=== PATIENT | female | born 2000 | race Two or more races ===

== ENCOUNTER 2024-06-17 19:38 | Inpatient (IN) | payer OTHER ==
[~2024-06-17] VITALS: Ht 162.6 cm; Wt 47.2 kg
[~2024-06-17 19:38] MED LIST: NA
[2024-06-17] MEDS ORDERED: ONDANSETRON HCL 2 MG/ML VIAL ONE (20:10)
[2024-06-17] MEDS ORDERED: KETOROLAC TROMETHAMINE 30 MG VIAL ONE (20:10)
[2024-06-17] MEDS ORDERED: FAMOTIDINE/PF 20 MG/2 ML VIAL ONE (20:11)
[2024-06-17] MEDS ORDERED: ONDANSETRON HCL 2 MG/ML VIAL IV ONE (20:15)
[2024-06-17] MEDS ORDERED: FAMOtidine 10 MG/ML (4ML VIAL) IV ONE (20:15)
[2024-06-17] MEDS ORDERED: KETOROLAC TROMETHAMINE 30 MG VIAL IU ONE (20:15)
[2024-06-17 21:23] LABS: HEMATOCRIT 35.7 % (36.0-45.00); MEAN CELL VOLUME 86.5 fL (80.00-100.00); MEAN CORPUSCULAR HEMOGLOBIN 29.2 pg (27.00-32.0); MEAN CORPUSCULAR HGB CONC 33.8 g/dl (32.0-36.0); PLATELET COUNT 307 K/uL (150-450); RED BLOOD COUNT 4.12 M/uL (4.00-6.00); RED CELL DISTRIBUTION WIDTH 13.7 % (11.5-14.5)
[2024-06-17 21:44] LABS: INR 1.07; PARTIAL THROMBOPLASTIN TIME 22.8 SECONDS (22.0-34.0); PROTHROMBIN TIME 11.6 SECONDS (9.0-11.5)
[2024-06-17 21:50] LABS: ALBUMIN 3.5 gm/dL (3.4-5.0); ALKALINE PHOSPHATASE 51 U/L (50-136); ALT/SGPT 16 U/L (12-78); ANION GAP 10 (10.0-20.0); AST/SGOT 10 U/L (15-37); BILIRUBIN TOTAL 0.99 mg/dL (0.3-1.2); BLOOD UREA NITROGEN 16 mg/dL (7-18); BUN CREA RATIO 22 (7.0-25.0); CALCIUM 9.2 mg/dL (8.5-10.1); CARBON DIOXIDE 26 mEq/L (21-32); CHLORIDE 111 mmol/L (98-107); CREATININE SERUM 0.74 mg/dL (0.55-1.02); GFR 96.42; GLOBULINA 2.7 G/DL (2.4-3.5); GLUCOSE FASTING 161 mg/dL (65-100); OSMOLALITY SERUM 290 MOSM/KG (275-295); POTASSIUM 4.41 mEq/L (3.5-5.1); SODIUM 143 mmol/L (136-145); TOTAL PROTEIN 6.2 gm/dL (6.4-8.2)
[2024-06-17 21:54] LABS: HCG QUANTITATIVE < 1 mUI/mL (1-3)
[2024-06-17] MEDS ORDERED: PIPERACILLIN/TAZOBACTAM SODIUM 3.375 GM VIAL IV ONE ×3 (21:54→22:00)
[2024-06-17] MEDS ORDERED: 0.9 % SODIUM CHLORIDE 1,000 ML IV ONE (22:00)
[2024-06-17] MEDS ORDERED: MORPHINE SULFATE 2 MG/ML SYRINGE IV ONE (23:15)
[2024-06-18] MEDS ORDERED: NOREPINEPHRINE BITARTRATE 1 MG/ML AMPUL IV ONE (00:23)
[2024-06-18 00:24] LABS: HEMATOCRIT 26.7 % (36.0-45.00); HEMOGLOBIN 9.1 g/dL (12.0-15.00); MEAN CELL VOLUME 85.2 fL (80.00-100.00); PLATELET COUNT 233 K/uL (150-450); RED BLOOD COUNT 3.13 M/uL (4.00-6.00); RED CELL DISTRIBUTION WIDTH 13.9 % (11.5-14.5)
[2024-06-18] MEDS ORDERED: NOREPINEPHRINE BITARTRATE 1 MG/ML AMPUL IV STA (00:24)
[2024-06-18] MEDS ORDERED: ONDANSETRON HCL 2 MG/ML VIAL IV SCH (03:11)
[2024-06-18] MEDS ORDERED: MORPHINE SULFATE 4 MG/ML VIAL IV PRN (03:15)
[2024-06-18] MEDS ORDERED: RINGERS SOLUTION,LACTATED 1,000 ML IV SCH ×2 (03:15→16:00)
[2024-06-18] MEDS ORDERED: MIDAZOLAM HCL 50 MG in 0.9 % SODIUM CHLORIDE 50 ML IV SCH (04:15)
[2024-06-18 04:33] LABS: HEMATOCRIT 37.7 % (36.0-45.00); HEMOGLOBIN 12.4 g/dL (12.0-15.00); MEAN CELL VOLUME 86.8 fL (80.00-100.00); MEAN CORPUSCULAR HEMOGLOBIN 28.7 pg (27.00-32.0); PLATELET COUNT 222 K/uL (150-450); RED BLOOD COUNT 4.34 M/uL (4.00-6.00); RED CELL DISTRIBUTION WIDTH 14.1 % (11.5-14.5)
[2024-06-18] MEDS ORDERED: MORPHINE SULFATE 4 MG/ML VIAL IV ONE (05:15)
[2024-06-18 07:07] LABS: ABG PH 7.381 (7.35-7.45); BASE EXCESS -5.8 mmol/l; SaO2 99.6 %; Tco2 18.9 mmol/l
[2024-06-18 07:18] LABS: o2 100 %; puncture site RADIAL LEFT
[2024-06-18 07:19] LABS: allen test SATISFACTORY
[2024-06-18 08:48] LABS: HEMATOCRIT 34.3 % (36.0-45.00); HEMOGLOBIN 12.2 g/dL (12.0-15.00); MEAN CELL VOLUME 84.8 fL (80.00-100.00); MEAN CORPUSCULAR HEMOGLOBIN 30.3 pg (27.00-32.0); MEAN CORPUSCULAR HGB CONC 35.7 g/dl (32.0-36.0); PLATELET COUNT 218 K/uL (150-450); RED BLOOD COUNT 4.04 M/uL (4.00-6.00)
[2024-06-18 09:05] LABS: ABG PH 7.366 (7.35-7.45); ABG PO2 159.9 mmHg (80-100); ABG pCO2 31.7 mmHg (35-45); BASE EXCESS -6.3 mmol/l; BICARBONATE 17.7 mmol/l (23-25); SaO2 99.3 %; Tco2 18.7 mmol/l
[2024-06-18] MEDS ORDERED: FUROsemide 20 MG/2 ML VIAL IV ONE (09:45)
[2024-06-18] MEDS ORDERED: FUROsemide 20 MG/2 ML VIAL ONE (09:53)
[2024-06-18 10:46] LABS: ABG PH 7.384 (7.35-7.45); ABG PO2 136.8 mmHg (80-100); BASE EXCESS -9.4 mmol/l; BICARBONATE 13.4 mmol/l (23-25); SaO2 98.9 %; Tco2 14.1 mmol/l
[2024-06-18] MEDS ORDERED: MEROPENEM 500 MG/VIAL VIAL IV SCH (12:00)
[2024-06-18] MEDS ORDERED: LINEZOLID IN DEXTROSE 5% 300 ML IV SCH (12:34)
[2024-06-18 12:40] LABS: ABG PH 7.397 (7.35-7.45); ABG PO2 227.9 mmHg (80-100); ABG pCO2 34.4 mmHg (35-45); BASE EXCESS -3.3 mmol/l; BICARBONATE 20.7 mmol/l (23-25); SaO2 99.8 %; Tco2 21.7 mmol/l
[2024-06-18 13:16] LABS: o2 65 %
[2024-06-18 13:17] LABS: allen test SATISFACTORY; puncture site RADIAL LEFT
[2024-06-18 13:19] LABS: allen test SATISFACTORY; o2 65 %; puncture site RADIAL LEFT
[2024-06-18 13:20] LABS: allen test SATISFACTORY; o2 100 %; puncture site RADIAL LEFT
[2024-06-18 14:04] LABS: ALBUMIN 2.4 gm/dL (3.4-5.0); BILIRUBIN TOTAL 1.26 mg/dL (0.3-1.2); CALCIUM 6.8 mg/dL (8.5-10.1); CREATININE SERUM 0.74 mg/dL (0.55-1.02); GFR 96.42; GLOBULINA 1.9 G/DL (2.4-3.5); POTASSIUM 3.61 mEq/L (3.5-5.1); TOTAL PROTEIN 4.3 gm/dL (6.4-8.2)
[2024-06-18 14:40] VITALS: BP 89/69; O2SAT 96
[2024-06-18 14:43] LABS: HEMATOCRIT 35.9 % (36.0-45.00); HEMOGLOBIN 12.1 g/dL (12.0-15.00); MEAN CELL VOLUME 85.8 fL (80.00-100.00); MEAN CORPUSCULAR HEMOGLOBIN 28.9 pg (27.00-32.0); MEAN CORPUSCULAR HGB CONC 33.7 g/dl (32.0-36.0); PLATELET COUNT 213 K/uL (150-450); RED BLOOD COUNT 4.19 M/uL (4.00-6.00); RED CELL DISTRIBUTION WIDTH 14.1 % (11.5-14.5)
[2024-06-18 15:38] LABS: URINE APPEARANCE Clear; URINE BILIRRUBIN Negative (NEGATIVE); URINE BLOOD Large; URINE COLOR Yellow; URINE KETONE 15 (NEGATIVE); URINE LEUKOCYTE Negative; URINE NITRATE Negative; URINE PROTEIN Negative (NEGATIVE); URINE UROBILINOGEN 0.2 E.U./dl
[2024-06-18 15:39] LABS: URINE RBC 27.5 uL (0.0-20.8); URINE WBC 4.1 uL (0.0-23.2)
[2024-06-18 15:45] VITALS: BP 91/66; O2SAT 98
[2024-06-18 15:46] LABS: URINE BACTERIA 3.6 uL (0.0-1933); URINE CAST 0.88 uL (0.0-1.40); URINE EPITHELIAL CELLS 0.4 uL (0.0-38.8); URINE GLUCOSE 100 MG/DL (NEGATIVE)
[2024-06-18] MEDS ORDERED: FAMOTIDINE/PF 20 MG/2 ML VIAL IV SCH (17:00)
[2024-06-18] MEDS ORDERED: ONDANSETRON HCL 4 MG in 0.9 % SODIUM CHLORIDE 50 ML IV PRN (19:15)
[2024-06-18 20:00] VITALS: BP 80/61; BP 90/61; O2SAT 100
[2024-06-18] MEDS ORDERED: 0.9 % SODIUM CHLORIDE 250 ML IV SCH (21:00)
[2024-06-18] MEDS ORDERED: 0.9 % SODIUM CHLORIDE 1,000 ML IV SCH (21:00)
[2024-06-18 23:08] VITALS: BP 80/61; O2SAT 100
[2024-06-19] VITALS (17 sets, daily range): BP systolic 75–116; BP diastolic 42–76; O2SAT 100
[2024-06-19 07:20] LABS: ALBUMIN 1.8 gm/dL (3.4-5.0); BILIRUBIN TOTAL 0.73 mg/dL (0.3-1.2); CALCIUM 6.6 mg/dL (8.5-10.1); CREATININE SERUM 0.5 mg/dL (0.55-1.02); GFR 151.58; GLOBULINA 1.5 G/DL (2.4-3.5); POTASSIUM 3.45 mEq/L (3.5-5.1); TOTAL PROTEIN 3.3 gm/dL (6.4-8.2)
[2024-06-19 07:34] LABS: MEAN CELL VOLUME 84.8 fL (80.00-100.00); MEAN CORPUSCULAR HGB CONC 34.4 g/dl (32.0-36.0); PLATELET COUNT 159 K/uL (150-450); RED BLOOD COUNT 2.28 M/uL (4.00-6.00)
[2024-06-19 07:40] LABS: HEMATOCRIT 19.3 % (36.0-45.00); MEAN CORPUSCULAR HEMOGLOBIN 28.9 pg (27.00-32.0)
[2024-06-19 07:41] LABS: HEMOGLOBIN 6.6 g/dL (12.0-15.00)
[2024-06-19] MEDS ORDERED: NOREPINEPHRINE BITARTRATE 4 MG in DEXTROSE 5 % IN WATER 250 ML IV SCH (08:15)
[2024-06-19] MEDS ORDERED: CALCIUM GLUCONATE 100 MG/ML VIAL IV STA (08:30)
[2024-06-19] MEDS ORDERED: AMINOCAPROIC ACID 250 MG/ML VIAL IV STA (08:31)
[2024-06-19] MEDS ORDERED: DOPamine 800 MG/250 ML D5W PB IV ONE (11:47)
[2024-06-19] MEDS ORDERED: DOPamine HCL IN DEXTROSE 5 % 250 ML IV SCH ×2 (12:00)
[2024-06-19 13:16] LABS: HEMATOCRIT 29.3 % (36.0-45.00); HEMOGLOBIN 10.1 g/dL (12.0-15.00); MEAN CELL VOLUME 83.4 fL (80.00-100.00); MEAN CORPUSCULAR HEMOGLOBIN 28.7 pg (27.00-32.0); MEAN CORPUSCULAR HGB CONC 34.4 g/dl (32.0-36.0); PLATELET COUNT 180 K/uL (150-450); RED BLOOD COUNT 3.51 M/uL (4.00-6.00); RED CELL DISTRIBUTION WIDTH 14.5 % (11.5-14.5)
[2024-06-19] MEDS ORDERED: FAMOTIDINE/PF 20 MG/2 ML VIAL ONE (14:27)
[2024-06-19] MEDS ORDERED: METRONIDAZOLE/SODIUM CHLORIDE 500 MG/100 ML PIGGYBACK IV STA (14:40)
[2024-06-19] MEDS ORDERED: FAMOTIDINE/PF 20 MG/2 ML VIAL IV PUSH STA (15:00)
[2024-06-19 15:49] LABS: HEMATOCRIT 28.8 % (36.0-45.00); HEMOGLOBIN 9.8 g/dL (12.0-15.00); MEAN CELL VOLUME 84.6 fL (80.00-100.00); MEAN CORPUSCULAR HEMOGLOBIN 28.7 pg (27.00-32.0); PLATELET COUNT 162 K/uL (150-450); RED CELL DISTRIBUTION WIDTH 14.3 % (11.5-14.5)
[2024-06-19] MEDS ORDERED: DOXYCYCLINE HYCLATE 100MG IV ONE (15:49)
[2024-06-19 16:16] LABS: TSH 2.57 uIU/mL (0.358-3.74)
[2024-06-19 16:20] LABS: T4 FREE 1.89 NG/ML (0.76-1.46)
[2024-06-19] MEDS ORDERED: DOXYCYCLINE HYCLATE 100MG IV NR (17:00)
[2024-06-19 18:34] LABS: HEMATOCRIT 24.3 % (36.0-45.00); MEAN CELL VOLUME 82.9 fL (80.00-100.00); MEAN CORPUSCULAR HGB CONC 34.7 g/dl (32.0-36.0); PLATELET COUNT 136 K/uL (150-450); RED BLOOD COUNT 2.93 M/uL (4.00-6.00); RED CELL DISTRIBUTION WIDTH 14.5 % (11.5-14.5)
[2024-06-19 18:44] LABS: HEMOGLOBIN 8.4 g/dL (12.0-15.00); MEAN CORPUSCULAR HEMOGLOBIN 28.6 pg (27.00-32.0)
[2024-06-19] MEDS ORDERED: METRONIDAZOLE/SODIUM CHLORIDE 500 MG/100 ML PIGGYBACK IV SCH (21:00)
[2024-06-20] VITALS (12 sets, daily range): BP systolic 93–106; BP diastolic 63–83; O2SAT 94–100
[2024-06-20] MEDS ORDERED: DOXYCYCLINE HYCLATE 100MG IV ONE ×2 (03:46→16:36)
[2024-06-20] MEDS ORDERED: DOXYCYCLINE HYCLATE 100MG IV SCH (05:00)
[2024-06-20] MEDS ORDERED: MORPHINE SULFATE 4 MG/ML CARTRIDGE IV PRN (06:15)
[2024-06-20] MEDS ORDERED: SIMETHICONE 125 MG CAPSULE PO SCH (13:00)
[2024-06-20 14:22] LABS: HEMATOCRIT 29.9 % (36.0-45.00); MEAN CORPUSCULAR HGB CONC 34.6 g/dl (32.0-36.0); RED CELL DISTRIBUTION WIDTH 14.1 % (11.5-14.5)
[2024-06-20 14:23] LABS: PLATELET COUNT 120 K/uL (150-450)
[2024-06-20 14:24] LABS: HEMOGLOBIN 10.3 g/dL (12.0-15.00); MEAN CORPUSCULAR HEMOGLOBIN 28.6 pg (27.00-32.0)
[2024-06-20 15:03] LABS: INR 1.02; PARTIAL THROMBOPLASTIN TIME 27.2 SECONDS (22.0-34.0); PROTHROMBIN TIME 11.1 SECONDS (9.0-11.5)
[2024-06-20 20:36] LABS: HEMATOCRIT 30.3 % (36.0-45.00); HEMOGLOBIN 10.4 g/dL (12.0-15.00); MEAN CELL VOLUME 83.8 fL (80.00-100.00); MEAN CORPUSCULAR HEMOGLOBIN 28.9 pg (27.00-32.0); MEAN CORPUSCULAR HGB CONC 34.5 g/dl (32.0-36.0); PLATELET COUNT 135 K/uL (150-450); RED BLOOD COUNT 3.61 M/uL (4.00-6.00); RED CELL DISTRIBUTION WIDTH 14.5 % (11.5-14.5)
[2024-06-20] MEDS ORDERED: ONDANSETRON HCL 2 MG/ML VIAL ONE (22:07)
[2024-06-21] VITALS (7 sets, daily range): BP systolic 11–106; BP diastolic 75–84; O2SAT 93–100
[2024-06-21] MEDS ORDERED: ACETAMINOPHEN WITH CODEINE 1 UDTAB TABLET PO PRN (08:45)
[2024-06-21 09:24] LABS: HEMATOCRIT 30.3 % (36.0-45.00); HEMOGLOBIN 10.5 g/dL (12.0-15.00); MEAN CORPUSCULAR HEMOGLOBIN 29.1 pg (27.00-32.0); MEAN CORPUSCULAR HGB CONC 34.7 g/dl (32.0-36.0); PLATELET COUNT 146 K/uL (150-450); RED CELL DISTRIBUTION WIDTH 14.1 % (11.5-14.5)
[2024-06-21] MEDS ORDERED: NAPROXEN 500 MG TABLET PO SCH (11:00)
[2024-06-21] MEDS ORDERED: DOXYCYCLINE HYCLATE 100MG IV ONE ×3 (16:29→23:19)
[2024-06-21 16:52] LABS: ABG PH 7.505 (7.35-7.45); ABG PO2 83.4 mmHg (80-100); BASE EXCESS 0.6 mmol/l; BICARBONATE 22.5 mmol/l (23-25); SaO2 97.2 %; Tco2 23.4 mmol/l
[2024-06-21 20:18] LABS: ABG pCO2 29.2 mmHg (35-45); allen test SATISFACTORY; o2 21 %; puncture site RADIAL LEFT
[2024-06-21] MEDS ORDERED: PANTOPRAZOLE SODIUM 40 MG/VIAL VIAL IV PUSH SCH (22:01)
[2024-06-21 23:05] LABS: chla t Negative (Negative); neiss Negative (Negative)
[2024-06-22 04:00] VITALS: BP 103/84; O2SAT 98
[2024-06-22 07:16] VITALS: BP 112/85; O2SAT 100
[2024-06-22 09:35] LABS: HEMATOCRIT 34.3 % (36.0-45.00); HEMOGLOBIN 11.5 g/dL (12.0-15.00); MEAN CELL VOLUME 85.3 fL (80.00-100.00); MEAN CORPUSCULAR HEMOGLOBIN 28.5 pg (27.00-32.0); MEAN CORPUSCULAR HGB CONC 33.4 g/dl (32.0-36.0); PLATELET COUNT 223 K/uL (150-450); RED BLOOD COUNT 4.02 M/uL (4.00-6.00); RED CELL DISTRIBUTION WIDTH 13.9 % (11.5-14.5)
[2024-06-22 11:28] VITALS: BP 115/83; O2SAT 99
[2024-06-22 16:18] VITALS: BP 104/72; O2SAT 97
[2024-06-22] MEDS ORDERED: FAMOtidine 20 MG TABLET PO SCH (17:00)
[2024-06-22] MEDS ORDERED: LINEZOLID 600 MG TABLET PO SCH (21:00)
[2024-06-23 00:33] VITALS: BP 102/72; O2SAT 97
[2024-06-23] MEDS ORDERED: VITAMIN B COMPLEX 1 EACH PO SCH (09:00)
[2024-06-23] MEDS ORDERED: PANTOPRAZOLE SODIUM 40 MG TABLET.DR PO SCH (09:00)
[2024-06-23 09:06] VITALS: BP 11/79; O2SAT 95
[2024-06-23 16:07] VITALS: BP 100/73; O2SAT 96
[2024-06-24 00:52] VITALS: BP 93/61; O2SAT 96
[2024-06-24 08:17] VITALS: BP 93/64; O2SAT 95
[2024-06-24] MEDS ORDERED: BACTRIM DS TAB1 EACH PO (10:30)
[2024-06-24] MEDS ORDERED: AMOX1TAB5 PO (10:30)
[2024-06-24] MEDS ORDERED: Tylenol #3 PO (10:30)
[2024-06-24] MEDS ORDERED: NAPR500T14 PO (10:30)
== END 2024-06-24 11:43 | disposition home or self-care (01) | DRG 742 ==
LOC: ER 19:40 → O/R 06-18 03:00 → ICU 06-18 03:00 → SURG 06-22 11:17
PROVIDERS: Anesthesiology; General Practice; Internal Medicine; Internal Medicine Infectious Disease; ADMIT Obstetrics & Gynecology; ATTEND Obstetrics & Gynecology
PROC: 4A033R1 Measurement of Arterial Saturation, Peripheral, Percutaneous Approach (ICD-10-PCS; 2024-06-18)
PROC: 5A1945Z Respiratory Ventilation, 24-96 Consecutive Hours (ICD-10-PCS; 2024-06-18)
PROC: 0UT00ZZ Resection of Right Ovary, Open Approach (ICD-10-PCS; principal; 2024-06-18 07:00)
PROC: BW21YZZ Computerized Tomography (CT Scan) of Abdomen and Pelvis using Other Contrast (ICD-10-PCS; 2024-06-19)
PROC: B246ZZZ Ultrasonography of Right and Left Heart (ICD-10-PCS; 2024-06-19)
PROC: 30233N1 Transfusion of Nonautologous Red Blood Cells into Peripheral Vein, Percutaneous Approach (ICD-10-PCS; 2024-06-20)
PROC: 30233K1 Transfusion of Nonautologous Frozen Plasma into Peripheral Vein, Percutaneous Approach (ICD-10-PCS; 2024-06-20)
PROC: 02HV33Z Insertion of Infusion Device into Superior Vena Cava, Percutaneous Approach (ICD-10-PCS; 2024-06-23)
DX: N83.11 Corpus luteum cyst of right ovary (principal); K66.1 Hemoperitoneum; R57.1 Hypovolemic shock; D50.0 Iron deficiency anemia secondary to blood loss (chronic); R10.31 Right lower quadrant pain